=== PATIENT | female | born 1950 | race Caucasian/White ===

== ENCOUNTER 2023-04-18 11:22 | Emergency (ER) | payer MEDICARE, MEDICAID ==
[~2023-04-18] VITALS: Ht 167.6 cm; Wt 72.7 kg
[2023-04-18 12:55] LABS: BILIRUBIN,URINE NEGATIVE (Neg); CLARITY,URINE CLEAR (Clear); COLOR,URINE YELLOW (Yellow); GLUCOSE, URINE NEGATIVE (Neg); KETONES,URINE 40 mg/dl (Neg); LEUKOCYTE ESTERASE ,URINE NEGATIVE (Neg); NITRITES, URINE NEGATIVE (Neg); OCCULT BLOOD,URINE NEGATIVE (Neg); PROTEIN,URINE TRACE mg/dl (Neg); UROBILINOGEN,URINE 0.2 E.U/dL (0.2-1.0)
[2023-04-18 13:01] LABS: UA COLLECTION TYPE CLN CATCH MIDSTREAM
[2023-04-18 13:03] LABS: BACTERIA,URINE FEW /HPF (Neg); HYALINE CASTS 0-3 /LPF (NEGATIVE); MUCUS STRANDS NONE SEEN /LPF (Neg); RBC,URINE NONE SEEN /HPF (0-2); SQUAMOUS EPITHELIAL CELL,UR FEW /LPF (FEW); WBC,URINE 0-4 /HPF (0-4)
[2023-04-18 13:04] LABS: BASOPHILS % (AUTO) 0.1 % (0-1); EOSINOPHILS % (AUTO) 0 % (0-6); HEMOGLOBIN 12.1 g/dl (12.0-16.0); LYMPHOCYTES # (AUTO) 1.3 X10'3 (1.1-4.8); LYMPHOCYTES % (AUTO) 12.4 % (21-51); MEAN CORPUSCULAR HEMOGLOBIN 29.7 PG (27.0-31.0); MEAN CORPUSCULAR HGB CONC 33.6 g/dL (33.0-36.5); MEAN CORPUSCULAR VOLUME 88.4 FL (78-98); MEAN PLATELET VOLUME 9.3 FL (7.4-10.4); MONOCYTES # (AUTO) 0.5 X10'3 (0-0.9); MONOCYTES % (AUTO) 4.9 % (2-12); NEUTROPHILS # (AUTO) 8.6 X10'3 (1.8-7.7); NEUTROPHILS % (AUTO) 82.6 % (42-75); PLATELET COUNT 194 X10'3 (140-440); RED BLOOD COUNT 4.07 X10'6 (4.20-5.60); WHITE BLOOD COUNT 10.4 X10'3 (4.5-11.0)
[2023-04-18 13:21] LABS: ALANINE AMINOTRANSFERASE 22 U/L (12-78); ALBUMIN 4.6 G/DL (3.4-5.0); ALBUMIN/GLOBULIN RATIO 1.2 (1.1-1.5); ALKALINE PHOSPHATASE 84 IU/L (46-116); ANION GAP 16 (8-16); ASPARTATE AMINO TRANSFERASE 21 U/L (10-37); BILIRUBIN,TOTAL 0.7 MG/DL (0.1-1.0); BLOOD UREA NITROGEN 25 MG/DL (7-18); BUN/CREATININE RATIO 14.3 (10.0-20.0); CALCIUM 9.8 MG/DL (8.5-10.1); CHLORIDE 96 MMOL/L (99-107); CREATININE 1.75 MG/DL (0.40-0.90); GLUCOSE 98 MG/DL (70-104); POTASSIUM 3.4 MMOL/L (3.5-5.1); SODIUM 132 MMOL/L (135-145); TOTAL CARBON DIOXIDE 19.7 MMOL/L (24-32); TOTAL PROTEIN 8.6 G/DL (6.4-8.2); eCRCL 28 ML/MIN; eGFR 29 ML/MIN
[2023-04-18] MEDS: potassium Cl 40MEQ/1/2NS 520ml 520 ML IV ONE (13:25)
[2023-04-18 13:31] LABS: ETHANOL < 10 MG/DL (<10); THYROID STIMULATING HORMONE 15.07 ulU/ml (0.34-4.50)
[2023-04-18 13:41] LABS: URINE AMPHETAMINE SCREEN NEGATIVE (Neg); URINE BARBITUATE SCREEN NEGATIVE (Neg); URINE BENZODIAZEPINES SCREEN NEGATIVE (Neg); URINE CANNABINOID SCREEN POSITIVE (Neg); URINE COCAINE SCREEN NEGATIVE (Neg); URINE METHADONE SCREEN NEGATIVE (Neg); URINE OPIATE SCREEN NEGATIVE (Neg); URINE PHENCYCLIDINE SCREEN NEGATIVE (Neg)
[2023-04-18] MEDS: normal saline 1000ML IV soln IVB ONE (13:51)
[2023-04-18] MEDS: potassium Cl 20 mEq SR tablet PO ONE (13:52)
[2023-04-18] MEDS: magnesium 2GM in 50ml NS 50 ML IV ONE (13:52)
[2023-04-18] MEDS: levoTHYROXINE 125mcg tablet PO ONE (15:34)
[2023-04-18] MEDS: LORazepam 2 mg/ml vial IM ONE (16:55)
[2023-04-18] MEDS: diphenhydrAMINE 50 mg/ml inj IM ONE (16:55)
[2023-04-18] MEDS: haloperidol lactate 5mg/ml inj IM ONE (17:23)
[2023-04-18] MEDS ORDERED: OXYC-658 PO (19:59)
[2023-04-18] MEDS ORDERED: CEFP200T13 PO (19:59)
[2023-04-18] MEDS ORDERED: CYAN-104 PO (19:59)
[2023-04-18] MEDS ORDERED: SENN-263 PO (19:59)
[2023-04-18] MEDS ORDERED: LEVO150T8 PO (19:59)
[2023-04-18] MEDS ORDERED: CEPH-585 PO (19:59)
[2023-04-18] MEDS ORDERED: OMEP20CA16 PO (19:59)
[2023-04-18] MEDS ORDERED: CETI10TA14 PO (19:59)
[2023-04-18] MEDS ORDERED: CIPR500T5 PO (19:59)
[2023-04-18] MEDS ORDERED: LISI5TAB22 PO (19:59)
[2023-04-18] MEDS ORDERED: ONDA4TAB12 PO (19:59)
[2023-04-18] MEDS ORDERED: CLON0.5T23 PO (19:59)
[2023-04-18] MEDS ORDERED: CYCL5TAB PO (19:59)
[2023-04-18] MEDS ORDERED: FERR-106 PO (19:59)
[2023-04-18] MEDS ORDERED: BUPR1TAB45 SL (19:59)
[2023-04-18] MEDS ORDERED: IBUP-2697 PO (19:59)
[2023-04-18] MEDS ORDERED: GABA-530 PO ×2 (19:59→21:18)
[2023-04-18] MEDS ORDERED: VENL100T4 PO (21:20)
[2023-04-18] MEDS ORDERED: ALB0.5UD IH (21:25)
[2023-04-18] MEDS ORDERED: FLUT1DIS20 INH (21:27)
[2023-04-18] MEDS ORDERED: BISA10SU11 RC (21:28)
[2023-04-18] MEDS ORDERED: ondansetron 4mg rapidly disintigrating tab PO PRN (22:10)
[2023-04-19 00:08] VITALS: PULSE 97; RESP 18; O2SAT 97
[2023-04-19] MEDS: buprenorphine/naloxone 8MG-2MG SUBlingual film SL ONE (01:34)
[2023-04-19 02:00] VITALS: PULSE 97; RESP 18; O2SAT 97
[2023-04-19] MEDS: LidoCAINE 2% Topical Jelly 11mL syringe TOP ONE (02:00)
[2023-04-19] MEDS: lisinopril 5mg tablet PO SCH (08:00)
[2023-04-19] MEDS: budesonide 0.5mg/2ml UD nebule IH SCH (08:05)
[2023-04-19] MEDS: albuterol 2.5 MG/3 ML nebule NEB PRN (08:05)
[2023-04-19 08:07] VITALS: PULSE 71; RESP 18; O2SAT 99
[2023-04-19 08:16] VITALS: PULSE 80; RESP 18
[2023-04-19] MEDS: pantoprazole 40mg Tablet.DR PO SCH (08:29)
[2023-04-19] MEDS: sennosides 8.6mg tablet PO SCH (08:56)
[2023-04-19] MEDS: ferrous sulfate 325mg tablet PO SCH (08:57)
[2023-04-19] MEDS: venlafaxine 25mg tablet PO SCH (08:58)
[2023-04-19] MEDS: cyanocobalamin 500mcg tablet PO SCH (08:58)
[2023-04-19] MEDS: gabapentin 300mg capsule PO SCH (08:58)
[2023-04-19] MEDS: buprenorphine/naloxone 8MG-2MG SUBlingual film SL SCH (08:58)
[2023-04-19] MEDS: ciprofloxacin 250mg tablet PO SCH (10:47)
[2023-04-19] MEDS: levoTHYROXINE 75mcg tablet PO SCH (10:47)
[2023-04-19 16:52] LABS: FREE T4 (FREE THYROXINE) 1.21 NG/DL (0.73-1.40)
[2023-04-19] MEDS: ibuprofen 200mg tablet PO PRN (18:47)
[2023-04-19 20:46] VITALS: PULSE 98; RESP 18; O2SAT 96
[2023-04-19 20:57] VITALS: PULSE 95; RESP 18
[2023-04-20 09:21] VITALS: PULSE 90; RESP 16; O2SAT 97
[2023-04-20 09:26] VITALS: PULSE 85; RESP 17
[2023-04-20 20:54] VITALS: PULSE 82; RESP 16; O2SAT 98
[2023-04-20 21:01] VITALS: PULSE 80; RESP 16
[2023-04-20] MEDS: clonazePAM 0.5mg tablet PO PRN (22:42)
[2023-04-20] MEDS: NICOTINE POLACRILEX 2 MG LOZENGE BC PRN (22:51)
[2023-04-21 08:50] VITALS: PULSE 83; RESP 16; O2SAT 95
[2023-04-21 08:58] VITALS: PULSE 82; RESP 15
[2023-04-21] MEDS: oxyCODONE IR 5mg (immed. release) tablet PO PRN (16:57)
[2023-04-21] MEDS: cyclobenzaprine 10mg tablet PO PRN (16:57)
[2023-04-21] MEDS: bisacodyl 10mg suppository rectal RC PRN (18:45)
[2023-04-21 20:28] VITALS: PULSE 96; RESP 16; O2SAT 95
[2023-04-21 20:34] VITALS: PULSE 88; RESP 16
[2023-04-22 09:43] VITALS: PULSE 94; RESP 14; O2SAT 95
[2023-04-22 09:49] VITALS: PULSE 80; RESP 16
[2023-04-23 07:52] VITALS: PULSE 80; RESP 16; O2SAT 97
[2023-04-23 08:01] VITALS: PULSE 78; RESP 16
[2023-04-23] MEDS: magnesium hydroxide 30ml (MOM) UD suspension PO PRN (10:01)
[2023-04-23 19:30] VITALS: PULSE 104; RESP 16; O2SAT 96
[2023-04-23 19:35] VITALS: PULSE 93; RESP 16
[2023-04-23] MEDS: docusate sod 100mg capsule PO SCH (20:02)
[2023-04-24 07:54] VITALS: PULSE 83; RESP 16; O2SAT 98
[2023-04-24 08:00] VITALS: PULSE 73; RESP 16
[2023-04-24 20:00] VITALS: PULSE 80; RESP 16; O2SAT 97
[2023-04-24 20:08] VITALS: PULSE 80; RESP 16
[2023-04-25 07:35] VITALS: PULSE 72; RESP 16; O2SAT 99
[2023-04-25 07:37] VITALS: PULSE 72; RESP 18; O2SAT 99
[2023-04-25 07:38] VITALS: PULSE 74; RESP 16
[2023-04-25 21:04] VITALS: PULSE 82; RESP 16; O2SAT 97
[2023-04-25 21:13] VITALS: PULSE 70; RESP 16
[2023-04-25] MEDS: cetirizine 10mg tablet PO PRN (21:30)
[2023-04-26 08:03] VITALS: PULSE 86; RESP 18; O2SAT 96
[2023-04-26 08:13] VITALS: PULSE 84; RESP 18
[2023-04-27 09:58] VITALS: PULSE 76; RESP 16; O2SAT 95
[2023-04-27 10:08] VITALS: PULSE 81; RESP 16
[2023-04-27 20:52] VITALS: PULSE 74; RESP 16; O2SAT 94
[2023-04-27 21:00] VITALS: PULSE 76; RESP 16
[2023-04-28 21:38] VITALS: PULSE 75; RESP 16; O2SAT 93
[2023-04-28 21:47] VITALS: PULSE 75; RESP 16
[2023-04-29 09:19] VITALS: PULSE 64; RESP 12; O2SAT 97
[2023-04-29 09:31] VITALS: PULSE 62; RESP 12
[2023-04-29 20:45] VITALS: PULSE 66; RESP 12; O2SAT 95
[2023-04-29 20:54] VITALS: PULSE 64; RESP 12
[2023-04-30 09:01] VITALS: PULSE 66; RESP 14; O2SAT 99
[2023-04-30 09:05] VITALS: PULSE 65; RESP 14
[2023-04-30 19:57] VITALS: PULSE 64; RESP 14; O2SAT 98
[2023-04-30 20:04] VITALS: PULSE 67; RESP 14
[2023-05-01 20:06] VITALS: PULSE 62; RESP 16; O2SAT 91
[2023-05-01 20:14] VITALS: PULSE 61; RESP 16
[2023-05-02 08:57] VITALS: PULSE 69; RESP 15; O2SAT 96
[2023-05-02 09:04] VITALS: PULSE 62; RESP 18
[2023-05-03 08:31] VITALS: PULSE 58; RESP 16; O2SAT 97
[2023-05-03 08:33] VITALS: PULSE 57; RESP 18
[2023-05-03] MEDS: cyclobenzaprine 10mg tablet PO PRN (15:48)
[2023-05-03 20:47] VITALS: PULSE 68; RESP 16; O2SAT 99
[2023-05-04 10:41] VITALS: PULSE 66; PULSE 67; RESP 16; RESP 18; O2SAT 99
[2023-05-05 09:47] VITALS: PULSE 72; RESP 16; O2SAT 97
[2023-05-05 10:00] VITALS: PULSE 72; RESP 16
[2023-05-06] MEDS: ibuprofen 200mg tablet PO PRN (03:49)
[2023-05-06 09:36] VITALS: PULSE 59; RESP 16; O2SAT 98
[2023-05-06 09:43] VITALS: PULSE 71; RESP 16
[2023-05-06 20:27] VITALS: PULSE 74; RESP 16; O2SAT 95
[2023-05-06 20:31] VITALS: PULSE 70; RESP 16
[2023-05-07 09:09] VITALS: PULSE 72; RESP 16; O2SAT 95
[2023-05-07 09:15] VITALS: PULSE 73; RESP 16
[2023-05-07 19:25] VITALS: PULSE 71; RESP 16; O2SAT 94
[2023-05-07 19:33] VITALS: PULSE 84; RESP 16
[2023-05-08 08:20] VITALS: PULSE 64; RESP 18; O2SAT 95
[2023-05-08] MEDS: LORazepam 0.5 MG tablet PO ONE (18:52)
[2023-05-08 20:34] LABS: BASOPHILS % (AUTO) 0.5 % (0-1); EOSINOPHILS # (AUTO) 0.1 X10'3 (0-0.9); EOSINOPHILS % (AUTO) 1.8 % (0-6); HEMATOCRIT 30.3 % (35.0-45.0); LYMPHOCYTES # (AUTO) 1.4 X10'3 (1.1-4.8); MEAN CORPUSCULAR HEMOGLOBIN 29.7 PG (27.0-31.0); MEAN CORPUSCULAR VOLUME 90.1 FL (78-98); MONOCYTES # (AUTO) 0.5 X10'3 (0-0.9); MONOCYTES % (AUTO) 9.6 % (2-12); NEUTROPHILS # (AUTO) 3.3 X10'3 (1.8-7.7); NEUTROPHILS % (AUTO) 62.1 % (42-75); PLATELET COUNT 139 X10'3 (140-440); RED BLOOD COUNT 3.37 X10'6 (4.20-5.60); RED CELL DISTRIBUTION WIDTH 13.5 % (11.5-14.5); WHITE BLOOD COUNT 5.3 X10'3 (4.5-11.0)
[2023-05-08 20:48] LABS: ALANINE AMINOTRANSFERASE 23 U/L (12-78); ALBUMIN 3.2 G/DL (3.4-5.0); ALKALINE PHOSPHATASE 125 IU/L (46-116); ANION GAP 7 (8-16); ASPARTATE AMINO TRANSFERASE 14 U/L (10-37); BILIRUBIN,TOTAL 0.2 MG/DL (0.1-1.0); BLOOD UREA NITROGEN 21 MG/DL (7-18); BUN/CREATININE RATIO 13.7 (10.0-20.0); CALCIUM 9.2 MG/DL (8.5-10.1); CHLORIDE 104 MMOL/L (99-107); CREATININE 1.53 MG/DL (0.40-0.90); GLUCOSE 124 MG/DL (70-104); POTASSIUM 4.2 MMOL/L (3.5-5.1); SODIUM 137 MMOL/L (135-145); TOTAL CARBON DIOXIDE 25.6 MMOL/L (24-32); TOTAL PROTEIN 6.5 G/DL (6.4-8.2); eCRCL 32 ML/MIN; eGFR 34 ML/MIN
[2023-05-08 21:08] VITALS: PULSE 76; RESP 16; O2SAT 95
[2023-05-08 21:15] VITALS: PULSE 79; RESP 16
[2023-05-09 09:21] VITALS: PULSE 82; RESP 16; O2SAT 96
[2023-05-09 20:35] VITALS: PULSE 68; RESP 16; O2SAT 96
[2023-05-10 08:48] VITALS: PULSE 67; RESP 16; O2SAT 94
[2023-05-10 08:54] VITALS: PULSE 70; RESP 16
[2023-05-10 20:38] VITALS: PULSE 80; RESP 16; O2SAT 94
[2023-05-11 20:52] VITALS: PULSE 75; RESP 16; O2SAT 97
[2023-05-12 19:28] VITALS: PULSE 85; RESP 16; O2SAT 98
[2023-05-12] MEDS: traZODone 50mg tablet PO PRN (23:47)
[2023-05-13 19:22] VITALS: PULSE 84; RESP 16; O2SAT 98
[2023-05-14 09:47] LABS: BASOPHILS % (AUTO) 0.8 % (0-1); EOSINOPHILS # (AUTO) 0.1 X10'3 (0-0.9); EOSINOPHILS % (AUTO) 1.7 % (0-6); HEMATOCRIT 34.2 % (35.0-45.0); HEMOGLOBIN 11.4 g/dl (12.0-16.0); LYMPHOCYTES # (AUTO) 1.7 X10'3 (1.1-4.8); LYMPHOCYTES % (AUTO) 31.4 % (21-51); MEAN CORPUSCULAR HEMOGLOBIN 29.4 PG (27.0-31.0); MEAN CORPUSCULAR HGB CONC 33.2 g/dL (33.0-36.5); MEAN CORPUSCULAR VOLUME 88.6 FL (78-98); MEAN PLATELET VOLUME 9.7 FL (7.4-10.4); MONOCYTES # (AUTO) 0.5 X10'3 (0-0.9); MONOCYTES % (AUTO) 9.5 % (2-12); NEUTROPHILS # (AUTO) 3.1 X10'3 (1.8-7.7); NEUTROPHILS % (AUTO) 56.6 % (42-75); PLATELET COUNT 167 X10'3 (140-440); RED BLOOD COUNT 3.86 X10'6 (4.20-5.60); RED CELL DISTRIBUTION WIDTH 13.5 % (11.5-14.5); WHITE BLOOD COUNT 5.4 X10'3 (4.5-11.0)
[2023-05-14 09:59] LABS: ALANINE AMINOTRANSFERASE 30 U/L (12-78); ALBUMIN 3.3 G/DL (3.4-5.0); ALBUMIN/GLOBULIN RATIO 0.9 (1.1-1.5); ALKALINE PHOSPHATASE 145 IU/L (46-116); ANION GAP 5 (8-16); ASPARTATE AMINO TRANSFERASE 13 U/L (10-37); BILIRUBIN,TOTAL 0.2 MG/DL (0.1-1.0); BLOOD UREA NITROGEN 18 MG/DL (7-18); BUN/CREATININE RATIO 13.1 (10.0-20.0); CALCIUM 9.7 MG/DL (8.5-10.1); CHLORIDE 105 MMOL/L (99-107); CREATININE 1.37 MG/DL (0.40-0.90); GLUCOSE 89 MG/DL (70-104); POTASSIUM 4.1 MMOL/L (3.5-5.1); SODIUM 138 MMOL/L (135-145); TOTAL CARBON DIOXIDE 27.8 MMOL/L (24-32); eCRCL 36 ML/MIN; eGFR 38 ML/MIN
[2023-05-14 12:22] VITALS: PULSE 77; RESP 14
[2023-05-14 15:50] LABS: BILIRUBIN,URINE NEGATIVE (Neg); CLARITY,URINE CLEAR (Clear); COLOR,URINE STRAW (Yellow); GLUCOSE, URINE NEGATIVE (Neg); KETONES,URINE NEGATIVE (Neg); LEUKOCYTE ESTERASE ,URINE NEGATIVE (Neg); NITRITES, URINE NEGATIVE (Neg); OCCULT BLOOD,URINE NEGATIVE (Neg); PROTEIN,URINE NEGATIVE (Neg); UROBILINOGEN,URINE 0.2 E.U/dL (0.2-1.0)
[2023-05-14 15:53] LABS: UA COLLECTION TYPE CLN CATCH MIDSTREAM
[2023-05-15 10:22] VITALS: PULSE 76; RESP 16; O2SAT 91
[2023-05-16 16:04] VITALS: PULSE 77; RESP 17; O2SAT 95
[2023-05-17] MEDS: cyclobenzaprine 10mg tablet PO PRN (10:10)
[2023-05-18] MEDS: budesonide 0.5mg/2ml UD nebule IH SCH (09:17)
[2023-05-18] MEDS: QUEtiapine 25mg tablet PO PRN (19:21)
[2023-05-18 20:29] VITALS: PULSE 80; RESP 16; O2SAT 95
[2023-05-21] MEDS: gabapentin 300mg capsule PO PRN (03:01)
[2023-05-21] MEDS: oxyCODONE IR 5mg (immed. release) tablet PO PRN (08:53)
[2023-05-21] MEDS: clonazePAM 0.5mg tablet PO PRN (10:38)
[2023-05-21] MEDS: loperamide 2mg capsule PO ONE (15:57)
[2023-05-21] MEDS: LIDOcaine 5% patch TP PRN (20:40)
[2023-05-22] MEDS ORDERED: LIDOcaine 5% patch TP SCH (08:00)
[2023-05-22 09:56] VITALS: PULSE 80; RESP 16; O2SAT 94
[2023-05-23] MEDS: loperamide 2mg capsule PO ONE (16:00)
[2023-05-23 19:49] VITALS: PULSE 92; RESP 16; O2SAT 98
[2023-05-24 15:14] VITALS: PULSE 83; RESP 14; O2SAT 94
[2023-05-24 20:30] VITALS: PULSE 80; RESP 16; O2SAT 96
[2023-05-25 20:06] VITALS: PULSE 78; RESP 16; O2SAT 98
[2023-05-26] MEDS: venlafaxine 25mg tablet PO SCH (07:54)
[2023-05-26 08:28] VITALS: PULSE 88; RESP 16; O2SAT 96
[2023-05-26] MEDS: oxyCODONE IR 5mg (immed. release) tablet PO PRN (15:02)
[2023-05-27 21:30] VITALS: PULSE 84; RESP 16; O2SAT 97
[2023-05-28 21:31] VITALS: PULSE 78; RESP 16; O2SAT 97
[2023-05-29 13:50] LABS: BASOPHILS % (AUTO) 0.5 % (0-1); EOSINOPHILS # (AUTO) 0.1 X10'3 (0-0.9); EOSINOPHILS % (AUTO) 0.9 % (0-6); HEMATOCRIT 34.4 % (35.0-45.0); HEMOGLOBIN 11.7 g/dl (12.0-16.0); LYMPHOCYTES # (AUTO) 1.9 X10'3 (1.1-4.8); LYMPHOCYTES % (AUTO) 25.6 % (21-51); MEAN CORPUSCULAR HEMOGLOBIN 29.7 PG (27.0-31.0); MEAN CORPUSCULAR HGB CONC 33.9 g/dL (33.0-36.5); MEAN CORPUSCULAR VOLUME 87.6 FL (78-98); MONOCYTES # (AUTO) 0.4 X10'3 (0-0.9); NEUTROPHILS # (AUTO) 4.9 X10'3 (1.8-7.7); PLATELET COUNT 141 X10'3 (140-440); RED BLOOD COUNT 3.93 X10'6 (4.20-5.60); RED CELL DISTRIBUTION WIDTH 13.5 % (11.5-14.5); WHITE BLOOD COUNT 7.3 X10'3 (4.5-11.0)
[2023-05-29 14:01] LABS: ALANINE AMINOTRANSFERASE 23 U/L (12-78); ALBUMIN 3.4 G/DL (3.4-5.0); ALBUMIN/GLOBULIN RATIO 0.9 (1.1-1.5); ALKALINE PHOSPHATASE 109 IU/L (46-116); ANION GAP 9 (8-16); ASPARTATE AMINO TRANSFERASE 13 U/L (10-37); BILIRUBIN,TOTAL 0.2 MG/DL (0.1-1.0); BLOOD UREA NITROGEN 22 MG/DL (7-18); BUN/CREATININE RATIO 14.6 (10.0-20.0); CALCIUM 9.6 MG/DL (8.5-10.1); CHLORIDE 100 MMOL/L (99-107); CREATININE 1.51 MG/DL (0.40-0.90); GLUCOSE 152 MG/DL (70-104); SODIUM 134 MMOL/L (135-145); TOTAL CARBON DIOXIDE 25.3 MMOL/L (24-32); eCRCL 32 ML/MIN; eGFR 34 ML/MIN
[2023-05-31 11:37] VITALS: PULSE 80; RESP 16; O2SAT 95
[2023-06-02 16:01] VITALS: PULSE 86; RESP 17; O2SAT 96
[2023-06-02 19:57] VITALS: PULSE 75; RESP 16; O2SAT 97
[2023-06-13] MEDS ORDERED: sennosides 8.6mg tablet PO PRN (08:00)
[2023-06-14] MEDS: gabapentin 300mg capsule PO PRN (12:00)
[2023-06-14] MEDS: docusate sod 100mg capsule PO PRN (21:07)
[2023-06-20 17:45] VITALS: BP 118/67; PULSE 75; TEMP 97.4; O2SAT 98
[2023-06-20] MEDS ORDERED: mag hydrox/Alum hydrox/simeth 30ml oral suspension PO PRN (19:35)
[2023-06-20] MEDS ORDERED: magnesium hydroxide 30ml (MOM) UD suspension PO PRN (19:35)
[2023-06-20] MEDS ORDERED: ondansetron/PF 4mg/2ml inj IV PRN (19:35)
[2023-06-20] MEDS ORDERED: magnesium Cl slow-release 64mg tablet PO PRN (19:35)
[2023-06-20] MEDS ORDERED: potassium Cl 20 mEq SR tablet PO PRN ×2 (19:35)
[2023-06-20] MEDS ORDERED: acetaminophen 325mg tablet PO PRN (19:35)
[2023-06-20] MEDS: docusate sod 100mg capsule PO SCH (20:00)
[2023-06-20 22:52] VITALS: RESP 16
== END 2023-06-20 19:38 | disposition still patient (30) ==
LOC: ER 11:23
DX: F22 Delusional disorders (principal); E86.0 Dehydration; E87.6 Hypokalemia; E03.9 Hypothyroidism, unspecified; Z88.8 Allergy status to other drugs, medicaments and biological substances; Z20.822 Contact with and (suspected) exposure to COVID-19
CPT/HCPCS: 36415; 80053; 80305; 80320; 81001; 81003; 82140; 84439; 84443; 85025; 87811; 96365; 96366; 96368; 96372; 99285; J1630; J3475; J3480; J7030; 96375